=== PATIENT | female | born 1995 | race Native Hawaiian/Other Pacific Islander ===

== ENCOUNTER 2016-07-02 12:54 | Emergency (ER) | payer OTHER ==
[~2016-07-02] VITALS: Ht 157.5 cm; Wt 67.6 kg
[2016-07-02 13:40] VITALS: BP 128/84; TEMP 98.2
== END 2016-07-02 13:40 | disposition home or self-care (01) ==
LOC: ED 12:54
DX: H92.01 Otalgia, right ear (principal); H60.591 Other noninfective acute otitis externa, right ear
CPT/HCPCS: 96372; 99282; J1885

== ENCOUNTER 2021-11-02 22:04 | Emergency (ER) | payer OTHER ==
[~2021-11-02] VITALS: Ht 160 cm; Wt 75.8 kg
[2021-11-02 23:13] VITALS: BP 105/75; TEMP 98.8
== END 2021-11-02 23:13 | disposition home or self-care (01) ==
LOC: ED 22:04
DX: S09.22XA Traumatic rupture of left ear drum, initial encounter (principal); Y04.2XXA Assault by strike against or bumped into by another person, initial encounter; Y92.89 Other specified places as the place of occurrence of the external cause
CPT/HCPCS: 96372; 99283; J1885